=== PATIENT | male | born 1960 | race Caucasian/White ===

== ENCOUNTER 2017-01-04 18:38 | Emergency (ER) | payer MEDICARE ==
[~2017-01-04] VITALS: Ht 177.8 cm; Wt 91.0 kg
[2017-01-04] MEDS ORDERED: METOCLOPRAMIDE 5 MG/ML, 2ML ONE (19:27)
[2017-01-04] MEDS ORDERED: FAMOTIDINE 20 MG/2 ML ONE (19:27)
[2017-01-04] MEDS ORDERED: HYDROmorphone 1 MG/ML, 1ML ONE (19:27)
[2017-01-04] MEDS ORDERED: DIPHENHYDRAMINE 50 MG/ML, 1ML ONE (19:27)
[2017-01-04] MEDS ORDERED: HYDROmorphone 1 MG/ML, 1ML IVPush PRN (19:30)
[2017-01-04] MEDS ORDERED: SODIUM CHLORIDE FLUSH 10ML SYR IVF ONE (19:30)
[2017-01-04] MEDS ORDERED: DIPHENHYDRAMINE 50 MG/ML, 1ML IVPush ONE (19:30)
[2017-01-04] MEDS ORDERED: FAMOTIDINE 20 MG/2 ML IVPush ONE (19:30)
[2017-01-04] MEDS ORDERED: METOCLOPRAMIDE 5 MG/ML, 2ML IVPush ONE (19:30)
[2017-01-04] MEDS ORDERED: SODIUM CHLORIDE 0.9% 1,000ML IVBOLUS ONE (19:30)
[2017-01-04 19:50] LABS: ASPARTATE AMINO TRANSFERASE 32 U/L (15-37); BLOOD UREA NITROGEN 19 mg/dL (7-18)
[2017-01-04 22:20] VITALS: BP 106/68
== END 2017-01-04 22:25 | disposition home or self-care (01) ==
LOC: ED 21:54
DX: K56.0 Paralytic ileus (principal); M06.9 Rheumatoid arthritis, unspecified; Z90.49 Acquired absence of other specified parts of digestive tract; Z87.891 Personal history of nicotine dependence
CPT/HCPCS: 36415; 74020; 74177; 80053; 83690; 85025; 93005; 96361; 96374; 96375; 99285; J1170; J1200; J2765; J7030; S0028

== ENCOUNTER 2017-03-27 01:27 | Emergency (ER) | payer OTHER, MEDICARE ==
[~2017-03-27] VITALS: Ht 177.8 cm; Wt 87.8 kg
[2017-03-27] MEDS ORDERED: KETOROLAC 30 MG/1 ML IM ONE (02:00)
[2017-03-27] MEDS ORDERED: KETOROLAC 30 MG/1 ML ONE (02:17)
[2017-03-27 02:19] LABS: HEMATOCRIT 43.7 % (39.2-51.8); HEMOGLOBIN 14.6 g/dL (13.7-18.0); WHITE BLOOD COUNT 8.3 x10^3/uL (3.4-10)
[2017-03-27 02:29] LABS: ASPARTATE AMINO TRANSFERASE 24 U/L (15-37); BLOOD UREA NITROGEN 21 mg/dL (7-18)
[2017-03-27 03:08] VITALS: BP 114/54
== END 2017-03-27 03:11 | disposition home or self-care (01) ==
LOC: ED 01:50
DX: M62.838 Other muscle spasm (principal); M06.9 Rheumatoid arthritis, unspecified; Z90.49 Acquired absence of other specified parts of digestive tract
CPT/HCPCS: 36415; 80053; 85025; 96372; 99284; J1885

== ENCOUNTER 2017-05-10 22:37 | Emergency (ER) | payer OTHER, MEDICARE ==
[2017-05-10 22:41] VITALS: BP 108/69
[2017-05-10] MEDS ORDERED: HYDROcodone/APAP 10/325 MG TABLET ONE (23:24)
[2017-05-10] MEDS ORDERED: TIZANIDINE 4MG TABLET PO ONE (23:30)
[2017-05-10] MEDS ORDERED: HYDROcodone/APAP 10/325 MG TABLET PO PRN (23:30)
== END 2017-05-10 23:35 | disposition home or self-care (01) ==
LOC: ED 23:22
DX: G89.29 Other chronic pain (principal); M54.2 Cervicalgia; M06.9 Rheumatoid arthritis, unspecified; Z88.6 Allergy status to analgesic agent; Z88.8 Allergy status to other drugs, medicaments and biological substances
CPT/HCPCS: 99283

== ENCOUNTER 2017-06-05 14:48 | Emergency (ER) | payer OTHER, MEDICARE ==
[~2017-06-05] VITALS: Ht 177.8 cm; Wt 91.0 kg
[2017-06-05 14:52] VITALS: BP 125/77
[2017-06-05] MEDS ORDERED: METHOCARBAMOL 750 MG TABLET ONE (15:07)
[2017-06-05] MEDS ORDERED: METHOCARBAMOL 750 MG TABLET PO ONE (15:30)
== END 2017-06-05 16:26 | disposition home or self-care (01) ==
LOC: ED 15:35
DX: M79.1 Myalgia (principal); M06.9 Rheumatoid arthritis, unspecified
CPT/HCPCS: 99283

== ENCOUNTER 2017-06-13 05:44 | Emergency (ER) | payer OTHER, MEDICARE ==
[~2017-06-13] VITALS: Ht 177.8 cm; Wt 90.0 kg
[2017-06-13] MEDS ORDERED: TIZA4TAB PO (06:06)
[2017-06-13] MEDS ORDERED: DIAZEPAM 5 MG TABLET ONE (06:20)
[2017-06-13] MEDS ORDERED: DIAZEPAM 5 MG TABLET PO ONE (06:30)
[2017-06-13 06:50] VITALS: BP 104/60
[2017-06-13 06:54] LABS: BLOOD UREA NITROGEN 24 mg/dL (7-18)
== END 2017-06-13 07:25 | disposition home or self-care (01) ==
LOC: ED 06:07
DX: M79.1 Myalgia (principal); M06.9 Rheumatoid arthritis, unspecified; G89.29 Other chronic pain; Z87.891 Personal history of nicotine dependence
CPT/HCPCS: 36415; 80048; 83735; 99284

== ENCOUNTER 2017-09-30 18:47 | Emergency (ER) | payer SELFPAY ==
[~2017-09-30] VITALS: Ht 177.8 cm; Wt 76.5 kg
[~2017-09-30 18:47] MED LIST: TIZA4TAB PO
[2017-09-30 19:46] VITALS: BP 95/59
[2017-09-30 19:51] LABS: BASOPHILS % (AUTO) 0 % (0-1); EOSINOPHILS # (AUTO) 0.04 x10^3/uL (0-0.4); EOSINOPHILS % (AUTO) 1 % (1-7); LYMPHOCYTES # (AUTO) 0.53 x10^3/uL (1-3.4); LYMPHOCYTES % (AUTO) 8 % (22-44); MD NO; MEAN CORPUSCULAR HEMOGLOBIN 31.3 pg (27.5-34.5); MEAN CORPUSCULAR HGB CONC 34.6 g/dL (33.2-36.2); MEAN CORPUSCULAR VOLUME 90.5 fL (81-97); MEAN PLATELET VOLUME 7.3 fL (7.4-10.4); MONOCYTES # (AUTO) 0.36 x10^3/uL (0.2-0.8); MONOCYTES % (AUTO) 5 % (2-9); NEUTROPHILS # (AUTO) 5.97 x10^3/uL (1.8-6.8); NEUTROPHILS % (AUTO) 87 % (42-75); PLATELET COUNT 297 x10^3/uL (130-400); RED BLOOD COUNT 4.93 x10^6/uL (4.38-5.82); RED CELL DISTRIBUTION WIDTH 13.3 % (9.4-14.8)
[2017-09-30 20:03] LABS: ALBUMIN 3.3 g/dL (3.4-5.0); ANION GAP 8 mmol/L (5-15); CALCIUM 8.4 mg/dL (8.5-10.1); CHLORIDE 106 mmol/L (98-107); CREATININE 0.86 mg/dL (0.7-1.3)
== END 2017-09-30 20:33 | disposition home or self-care (01) ==
LOC: ED 19:45
DX: R33.9 Retention of urine, unspecified (principal); M54.9 Dorsalgia, unspecified; G89.29 Other chronic pain; M06.9 Rheumatoid arthritis, unspecified; Z90.49 Acquired absence of other specified parts of digestive tract
CPT/HCPCS: 36415; 80048; 82040; 85025; 99284